=== PATIENT | male | born 1970 | race Caucasian/White ===

== ENCOUNTER 2025-06-23 10:55 | Day surgery (SDC) | payer BC, SELFPAY ==
[2025-06-23 11:34] VITALS: BMI 39.2
--- NOTE | 2025-06-23 11:37 | ITS.CL.CARDI ---
Civil Engineering Director - Cardioversion
Cardioversion
Procedure Report:
Cardioversion Note
Sedation: per anesthesia
Procedure: Successful synchronized biphasic cardioversion with 200 Joules to NSR.
Patient was positively identified, and procedure time was taken. Informed consent obtained. Correct patient position. Relevant images and results reviewed prior to procedure. Patient history and medications reviewed. Agreement to proceed.
Pre-op Diagnosis: Atrial Fibrillation
Post-op Diagnosis: Same
Patient was taken to the recovery area in stable condition. There were no complications and the patient tolerated the procedure well
== END 2025-06-23 12:26 | disposition home or self-care (01) ==
LOC: CATH 10:55
PROVIDERS: ATTENDING PHYSICIAN Internal Medicine Interventional Cardiology; FAMILY PHYSICIAN Family Medicine; OTHER PHYSICIAN Internal Medicine Cardiovascular Disease
DX: I48.91 Unspecified atrial fibrillation (principal)
CPT/HCPCS: 92960; 93005